=== PATIENT | female | born 1995 | race Caucasian/White ===

== ENCOUNTER 2019-02-17 10:23 | Inpatient (IN) | payer OTHER ==
[2019-02-17 10:28] VITALS: BMI 25.6
[2019-02-17] MEDS ORDERED: ACETAMINOPHEN 500 MG TABLET (FP) PO ONE (10:32)
--- NOTE | 2019-02-17 10:32 | PDOC ---
History of Present Illness - General Chief Complaint: Pain, Acute Stated Complaint: ABD PAIN Time Seen by Provider: 02/17/19 10:24 - History of Present Illness Initial Comments: 02/17/19 11:05 23 year old with no pmhx presents with 2 day of nausea, vomiting, RLQ cramping 8 /10 constant abdominal pain that onset 2 hours after eating pizza last night. The patient reports she awoke from sleep with pain and nausea occurring throughout the night without relief. The patient denies taking anything for pain. She reports that she is sexually active, LNMP 02/10/19. She reports feeling warm but did not check her temperature. She has no other complaints. ROS GENERAL/CONSTITUTIONAL: No fever or chills. No weakness. CARDIOVASCULAR: No chest pain or shortness of breath RESPIRATORY: No cough, wheezing, or hemoptysis. GASTROINTESTINAL: + nausea, vomiting, No diarrhea or constipation. GENITOURINARY: No dysuria, frequency, or change in urination. MUSCULOSKELETAL: No joint or muscle swelling or pain. No neck or back pain. SKIN: No rash PE GENERAL: Awake, alert, and fully oriented, in no acute distress HEAD: No signs of trauma, normocephalic, atraumatic EYES: EOMI, sclera anicteric, conjunctiva clear ENT: oropharynx clear without exudates. Moist mucosa NECK: Normal ROM, supple LUNGS: No distress, speaks full sentences, clear to auscultation bilaterally HEART: Regular rate and rhythm, normal S1 and S2, no murmurs, rubs or gallops, peripheral pulses normal and equal bilaterally. ABDOMEN: Soft, + RLQ tenderness, + Rovsing sign, + psoas sign, No guarding, no rebound. No masses EXTREMITIES : Normal inspection, Normal range of motion, no edema. No clubbing or cyanosis. NEUROLOGICAL: Cranial nerves II through XII grossly intact. Normal speech, no focal sensorimotor deficits SKIN: Warm, Dry, normal turgor, no rashes or lesions noted PELVIC: closed cervical os, no adenxal massess, no cervical motion tenderness MDM DDX including but not limited to: appendicitis consider ovarian torsions however presentation of pain inconsistent. r/o ectopic W/U: - pre-op labs, CT [place]: - zofran ,tylenol ED Course: leukocytosis to 16 ua, preg negative CT: enterocolitis vs appendicitis Page sent to surgery Dr. Cotton 02/17/19 13:[address] Cotton who recommends admission recommends repeat CTAP with oral contract dose zosyn and plan for admission patient to start drinking contrast and have scan after 1.5 hrs Goldie Boss, PGY2 Emergency Medicine Past History - Past Medical History Allergies/Adverse Reactions: Allergies Allergy/AdvReac Type Severity Reaction Status Date / Time No Known Allergies Allergy Verified 02/17/19 10:24 Home Medications: Ambulatory Orders NK [No Known Home Medication] 02/17/19 COPD: No - Reproductive History Is Patient Now?: No - Psycho Social/Smoking Cessation Hx Smoking History: Current some day smoker Have you smoked in the past 12 months: Yes Information on smoking cessation initiated: Yes Hx Alcohol Use: ("social") *Physical Exam - Vital Signs Last Vital Signs Temp Pulse Resp BP Pulse Ox 98.4 F 79 18 129/92 100 02/17/19 10:23 02/17/19 10:23 02/17/19 10:23 02/17/19 10:23 02/17/19 10:23 ED Treatment Course - LABORATORY CBC & Chemistry Diagram: 02/17/19 10:40 02/17/19 10:40 Discharge - Discharge Information Problems reviewed: Yes Clinical Impression/Diagnosis: Enterocolitis, Appendicitis Condition: Stable - Admission Yes - Follow up/Referral - Patient Discharge Instructions - Post Discharge Activity
[2019-02-17] MEDS ORDERED: ACETAMINOPHEN 1000 MG/100 ML VIAL (NON FORMULARY) IVPB ONE (10:38)
[2019-02-17] MEDS ORDERED: ONDANSETRON 4 MG/2 ML VIAL IVPUSH ONE (10:38)
[2019-02-17] MEDS ORDERED: ONDANSETRON 4 MG/2 ML VIAL ONE ×2 (10:48→11:33)
[2019-02-17] MEDS ORDERED: ACETAMINOPHEN INJECTION 100 ML IVPB ONE (10:48)
--- NOTE | 2019-02-17 10:53 | PDOC ---
Attending Attestation - Resident Resident Name: Fabiano Bossie - ED Attending Attestation I have performed the following: I have examined & evaluated the patient, The case was reviewed & discussed with the resident, I agree w/resident's findings & plan, Exceptions are as noted - HPI HPI: 02/17/19 10:47 23 F with no PMH presents to ED with RLQ pain x 2 days. Pt states pain started last night and has been constant, progressively worsening. Endorses nausea with vomiting and subjective fevers. Denies diarrhea/constipation. Not currently sexually active. Denies vaginal discharge/bleeding. No h/o STIs. Pt states that she had an episode of "mild appendicitis" several years ago that was managed with antibiotics. Denies any prior surgeries. - Physicial Exam PE: 02/17/19 10:48 GENERAL: Awake, alert, and fully oriented, in no acute distress. HEAD: No signs of trauma EYES: PERRLA, EOMI, sclera anicteric, conjunctiva clear ENT: Auricles normal inspection, hearing grossly normal, nares patent, oropharynx clear without exudates. Moist mucosa NECK: Nontender, no stepoffs, Normal ROM, supple, no lymphadenopathy, JVD, or masses LUNGS: Breath sounds equal, clear to auscultation bilaterally. No wheezes, and no crackles HEART: Regular rate and rhythm, normal S1 and S2, no murmurs, rubs or gallops ABDOMEN: + RLQ TTP, + rebound EXTREMITIES: Normal range of motion, no edema. No clubbing or cyanosis. No cords, erythema, or tenderness NEUROLOGICAL: Cranial nerves II through XII intact. 5/5 strength and sensation in all extremities, Normal speech, normal gait, normal cerebellar function SKIN: Warm, Dry, normal turgor, no rashes or lesions noted. - Medical Decision Making 02/17/19 10:49 23 F with RLQ pain. Suspect appendicitis. Pt's pain is not colicky, but consider ovarian torsion if appy work up is negative. - Labs, UA, UPT - CTAP - ?TVUS - IVF, tylenol 02/17/19 13:35 CT shows enterocolitis vs appendicitis Discussed with Dr. Cotton, surgeon material control specialist, who reviewed CT images and believes it is more likely Crohn's than appendicitis, but he will evaluate pt. Abx ordered. 02/17/19 13:49 Pt admitted to hospitalist. Dr. Cotton requesting repeat CT with PO contrast.
[2019-02-17 11:03] LABS: HEMATOCRIT 38.4 % (32.4-45.2); MCH 30.1 pg (25.7-33.7); MCHC 33.8 g/dl (32.0-36.0); MEAN CELL VOLUME 88.9 fl (80-96); MEAN PLT VOLUME 8.7 fl (7.5-11.1); PLATELET COUNT 257 K/MM3 (134-434); RBC 4.32 M/mm3 (3.60-5.2); WHITE BLOOD COUNT 16.2 K/mm3 (4.0-10.8)
[2019-02-17 11:08] LABS: INR 1.07 (0.82-1.09)
[2019-02-17 11:10] LABS: ALBUMIN 4.6 g/dl (3.4-5.0); BILIRUBIN,TOTAL 1.1 mg/dl (0.2-1); CALCIUM 9.7 mg/dl (8.5-10); CREATININE 0.8 mg/dl (0.55-1.3); POTASSIUM 3.8 mmol/L (3.5-5.1); TOT PROT 7.6 g/dl (6.4-8.2)
[2019-02-17] MEDS ORDERED: morphine CARPU-JECT 4 MG/1 ML DISP.SYRIN IVPUSH ONE (11:23)
[2019-02-17] MEDS ORDERED: ONDANSETRON 4 MG/2 ML VIAL IVPB ONE (11:23)
[2019-02-17 11:24] LABS: PLATELET ESTIMATE ADEQUATE
[2019-02-17] MEDS ORDERED: morphine SULFATE 4 MG/ML VIAL ONE (11:34)
[2019-02-17] MEDS ORDERED: METOCLOPRAMIDE HCL INJECTION 10 MG/2 ML VIAL IVPUSH ONE (11:34)
[2019-02-17] MEDS ORDERED: SODIUM CHLORIDE 1,000 ML IV STA (11:50)
[2019-02-17] MEDS ORDERED: PIPERACILLIN/TAZOB 4.5 GM 4.5 GM/100 ML BAG IVPB ONE (13:30)
[2019-02-17] MEDS ORDERED: PIPERACILLIN/TAZOBACTAM 4.5 GM VIAL IVPB ONE (13:35)
--- NOTE | 2019-02-17 14:44 | HP ---
CHIEF COMPLAINT: RLQ pain. PCP: Dr. Cheikh Jacob, [place] HISTORY OF PRESENT ILLNESS: 23 year-old female with a PMH significant for ovarian cysts, presented to the ED today for evaluation of RLQ pain and vomiting. Patient developed RLQ pain at around midnight. She was able to fall asleep but at 1:00am the pain awakened her and she began vomiting. Through the night the pain progressed and she vomited 10-12 times, bilious, non-bloody fluid. Initial CT with IV contrast was done in the ED and showed possible enterocolitis v. possible appendicitis. Repeat CTAP with PO contrast was done and there is no CT evidence of acute appendicitis, and the thickened loops of bowel seen on the first study are now filled with contrast and do not appear to be significantly thickened. Patient and her mother (present) now state patient was hospitalized in October 2017 in [place] for very similar symptoms: lower abdominal pain which was thought to be appendicitis but which turned out to be ovarian cysts. Patient has been on LoEstrin OCP for the past year. She stopped taking OCP about a month ago. Her LMP was 02/06 which was her second period in January which is very unusual for her. Patient denies fever, sweats, chills. Denies dysuria, frequency, urgency. Denies diarrhea. 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 Smoking: no; vaping no Alcohol: casual Drugs: marijuana Allergies No Known Allergies Allergy (Verified 02/17/19 10:24) HOME MEDICATIONS: Home Medications Medication Instructions Recorded NK [No Known Home Medication] 02/17/19 REVIEW OF SYSTEMS CONSTITUTIONAL: Absent: fever, chills, diaphoresis, generalized weakness, malaise, loss of appetite, weight change HEENT: Absent: rhinorrhea, nasal congestion, throat pain, throat swelling, difficulty swallowing, mouth swelling, ear pain, eye pain, visual changes CARDIOVASCULAR: Absent: chest pain, syncope, palpitations, irregular heart rate, lightheadedness , peripheral edema RESPIRATORY: Absent: cough, shortness of breath, dyspnea with exertion, orthopnea, wheezing, stridor, hemoptysis GASTROINTESTINAL: +abdominal pain, nausea, vomiting Absent: abdominal pain, abdominal distension, nausea, vomiting, diarrhea, constipation, melena, hematochezia GENITOURINARY: Absent: dysuria, frequency, urgency, hesitancy, hematuria, flank pain, genital pain MUSCULOSKELETAL: Absent: myalgia, arthralgia, joint swelling, back pain, neck pain SKIN: Absent: rash, itching, pallor HEMATOLOGIC/IMMUNOLOGIC: Absent: easy bleeding, easy bruising, lymphadenopathy, frequent infections ENDOCRINE: Absent: unexplained weight gain, unexplained weight loss, heat intolerance, cold intolerance NEUROLOGIC: Absent: headache, focal weakness or paresthesias, dizziness, unsteady gait, seizure, mental status changes, bladder or bowel incontinence PSYCHIATRIC: Absent: anxiety, depression, suicidal or homicidal ideation, hallucinations. PHYSICAL EXAMINATION Vital Signs - 24 hr 02/17/19 02/17/19 10:23 14:09 Temperature 98.4 F 98.2 F Pulse Rate 79 Pulse Rate [ 71 Left Apical] Respiratory 18 16 Rate Blood Pressure 129/92 Blood Pressure 117/68 [Left Arm] O2 Sat by Pulse 100 99 Oximetry (%) GENERAL: Awake, alert, and fully oriented, in no acute distress. LUNGS: Breath sounds equal, clear to auscultation bilaterally. No wheezes, and no crackles. No accessory muscle use. HEART: Regular rate and rhythm, normal S1 and S2 ABDOMEN: Tenderness both LLQ and RLQ, hypoactive bowel sounds UPPER EXTREMITIES: 2+ pulses, warm, well-perfused. No cyanosis. No clubbing. No peripheral edema. LOWER EXTREMITIES: 2+ pulses, warm, well-perfused. No calf tenderness. No peripheral edema. NEUROLOGICAL: Cranial nerves II-XII intact. Normal speech. Laboratory Results - last 24 hr 02/17/19 02/17/19 02/17/19 10:40 10:40 10:40 WBC 16.2 H RBC 4.32 Hgb 13.0 Hct 38.4 MCV 88.9 MCH 30.1 MCHC 33.8 RDW 13.0 Plt Count 257 MPV 8.7 Absolute Neuts (auto) 13.8 Neutrophils % No Result Required. Neutrophils % (Manual) 81.0 Band Neutrophils % 6.0 Lymphocytes % No Result Required. Lymphocytes % (Manual) 4.0 L Monocytes % (Manual) 9 Platelet Estimate Adequate PT with INR 12.0 INR 1.07 PTT (Actin FS) Sodium 140 Potassium 3.8 Chloride 104 Carbon Dioxide 22 Anion Gap 14 BUN 17.0 Creatinine 0.8 Est GFR (CKD-EPI)AfAm 120.44 Est GFR (CKD-EPI)NonAf 103.92 Random Glucose 137 H Calcium 9.7 Total Bilirubin 1.1 H AST 27 ALT 37 Alkaline Phosphatase 75 Total Protein 7.6 Albumin 4.6 Urine Color Urine Appearance Urine pH Urine Protein Urine Glucose (UA) Urine Ketones Urine Blood Urine Nitrite Urine Bilirubin Urine Urobilinogen Ur Leukocyte Esterase Urine HCG, Qual Blood Type Antibody Screen 02/17/19 02/17/19 02/17/19 10:40 10:40 10:41 WBC RBC Hgb Hct MCV MCH MCHC RDW Plt Count MPV Absolute Neuts (auto) Neutrophils % Neutrophils % (Manual) Band Neutrophils % Lymphocytes % Lymphocytes % (Manual) Monocytes % (Manual) Platelet Estimate PT with INR INR PTT (Actin FS) 32.9 Sodium Potassium Chloride Carbon Dioxide Anion Gap BUN Creatinine Est GFR (CKD-EPI)AfAm Est GFR (CKD-EPI)NonAf Random Glucose Calcium Total Bilirubin AST ALT Alkaline Phosphatase Total Protein Albumin Urine Color Urine Appearance Urine pH Urine Protein Urine Glucose (UA) Urine Ketones Urine Blood Urine Nitrite Urine Bilirubin Urine Urobilinogen Ur Leukocyte Esterase Urine HCG, Qual Negative Blood Type O POSITIVE Antibody Screen 02/17/19 02/17/19 10:41 10:42 WBC RBC Hgb Hct MCV MCH MCHC RDW Plt Count MPV Absolute Neuts (auto) Neutrophils % Neutrophils % (Manual) Band Neutrophils % Lymphocytes % Lymphocytes % (Manual) Monocytes % (Manual) Platelet Estimate PT with INR INR PTT (Actin FS) Sodium Potassium Chloride Carbon Dioxide Anion Gap BUN Creatinine Est GFR (CKD-EPI)AfAm Est GFR (CKD-EPI)NonAf Random Glucose Calcium Total Bilirubin AST ALT Alkaline Phosphatase Total Protein Albumin Urine Color Yellow Urine Appearance Clear Urine pH 7.0 Urine Protein Trace Urine Glucose (UA) Negative Urine Ketones Negative Urine Blood Negative Urine Nitrite Negative Urine Bilirubin Negative Urine Urobilinogen 0.2 Ur Leukocyte Esterase Negative Urine HCG, Qual Blood Type O POSITIVE Antibody Screen Negative ASSESSMENT/PLAN: 23 year-old female with a PMH significant for ovarian cysts, admitted for lower abdominal pain and leukocytosis. Lower abdominal pain Leukocytosis --has RLQ and LLQ tenderness on exam, WBC 16.2k, afebrile --CTAP w/PO contrast shows no CT evidence of appendicitis or enterocolitis; HCG negative --very similar presentation in October 2017 in hospital in [place], had a negative workup for appendicitis and turned out to be ovarian cysts; patient has been on OCP for past year, stopped in early December and has two irregular periods in January --empiric ceftriaxone and metronidazole --will get transvaginal US --message left for surgeon Dr. Yury LOREDO Fluids: NS @ 125mL/hr Electrolytes: replete as indicated Nutrition: NPO DVT prophylasix: oob, ambulation, SCDs Dispo: continues to require inpatient care. Full code., Visit type - Emergency Visit Emergency Visit: Yes ED Registration Date: 02/17/19 Care time: The patient presented to the Emergency Department on the above date and was hospitalized for further evaluation of their emergent condition. - New Patient This patient is new to me today: Yes Date on this admission: 02/17/19 - Critical Care Critical Care patient: No
[2019-02-17] MEDS ORDERED: SODIUM CHLORIDE 1,000 ML IV SCH (15:15)
[2019-02-17] MEDS: CEFTRIAXONE 2 GM-D5W BAG 2 GM/50 ML BAG IVPB SCH (15:19)
[2019-02-17] MEDS: ACETAMINOPHEN 1000 MG/100 ML VIAL (NON FORMULARY) IVPB PRN (17:35)
--- NOTE | 2019-02-17 19:18 | CONSULT ---
Consult Consult Specialty:: Surgery Reason for Consultation:: abdominal pain - History of Present Illness Chief Complaint: right lower quadrant abdominal pain History of Present Illness: 23 year old with no pmhx presents with 2 day of nausea, vomiting, RLQ cramping 8 /10 constant abdominal pain that onset 2 hours after eating pizza last night. The patient reports she awoke from sleep with pain and nausea occurring throughout the night without relief. The patient denies taking anything for pain. She reports that she is sexually active, LNMP 02/10/19. She reports feeling warm but did not check her temperature. She has no other complaints. - History Source History Provided By: Patient Limitations to Obtaining History: No Limitations - Past Medical History ...LMP: 02/03/19 ...: No - Alcohol/Substance Use Hx Alcohol Use: ("social") - Smoking History Smoking history: Current some day smoker Have you smoked in the past 12 months: Yes Home Medications - Allergies Allergies/Adverse Reactions: Allergies Allergy/AdvReac Type Severity Reaction Status Date / Time No Known Allergies Allergy Verified 02/17/19 10:24 - Home Medications Home Medications: Ambulatory Orders NK [No Known Home Medication] 02/17/19 Review of Systems - Review of Systems Constitutional: reports: Loss of Appetite Eyes: reports: No Symptoms HENT: reports: No Symptoms Neck: reports: No Symptoms Cardiovascular: reports: No Symptoms Respiratory: reports: No Symptoms Gastrointestinal: reports: Abdominal Pain (right lower quadrant), Nausea Physical Exam Vital Signs: Vital Signs Temperature 98.2 F 02/17/19 14:09 Pulse Rate 71 02/17/19 14:09 Respiratory Rate 16 02/17/19 14:09 Blood Pressure 117/68 02/17/19 14:09 O2 Sat by Pulse Oximetry (%) 99 02/17/19 14:09 Constitutional: Yes: Well Nourished Eyes: Yes: Conjunctiva Clear HENT: Yes: Normocephalic, Tonsillar Exudate Cardiovascular: Yes: Regular Rate and Rhythm Respiratory: Yes: CTA Bilaterally Gastrointestinal: Yes: Soft, Tenderness (at RLQ, suprApubic, and RUQ, no rebound tenderness) ...Rectal Exam: Yes: Deferred Labs: CBC, BMP 02/17/19 10:40 02/17/19 10:40 Imaging - Results Cat Scan: Report Reviewed, Image Reviewed (no evidence of acute appendicitis) Problem List - Problems (1) Appendicitis Assessment/Plan: with no radiologic findings suspicious for acute appendicitis, patient can be observed with serial abdominal exams agree with empiric antibiotics possible appendectomy only if there is no clinical improvement within 24 hours Code(s): K37 - UNSPECIFIED APPENDICITIS
[2019-02-18] MEDS ORDERED: PT OWN MED DRAWER 7, Y5N ONE ×2 (03:22→09:33)
[2019-02-18] MEDS: ACETAMINOPHEN 1000 MG/100 ML VIAL (NON FORMULARY) IVPB PRN (06:14)
[2019-02-18 06:16] VITALS: BP 114/68; PULSE 66; TEMP 97.9
[2019-02-18] MEDS: CEFTRIAXONE 2 GM-D5W BAG 2 GM/50 ML BAG IVPB SCH (10:04)
[2019-02-18 10:20] LABS: BASO % 0.6 % (0-2.0); EOS % 0.9 % (0-4.5); HEMATOCRIT 32.8 % (32.4-45.2); HEMOGLOBIN 10.9 GM/dl (10.7-15.3); LYMPH % 32.9 % (8-40); MCH 29.9 pg (25.7-33.7); MCHC 33.2 g/dl (32.0-36.0); MEAN PLT VOLUME 8.2 fl (7.5-11.1); NEUT % 58.6 % (42.8-82.8); PLATELET COUNT 198 K/MM3 (134-434); RBC 3.64 M/mm3 (3.60-5.2); RDW 13.2 % (11.6-15.6); WHITE BLOOD COUNT 6.1 K/mm3 (4.0-10.8)
--- NOTE | 2019-02-18 10:33 | DS ---
Physical Exam: SUBJECTIVE: Patient seen and examined OBJECTIVE: Vital Signs Period Temp Pulse Resp BP Sys/Barrera Pulse Ox Last 24 Hr 97.9 F-98.9 F 60-71 16-18 101-117/58-69 99-100 PHYSICAL EXAM GENERAL: The patient is awake, alert, and fully oriented, in no acute distress. HEAD: Normal with no signs of trauma. EYES: PERRL, extraocular movements intact, sclera anicteric, conjunctiva clear. ENT: Ears normal, nares patent, oropharynx clear without exudates, moist mucous membranes. NECK: Trachea midline, full range of motion, supple. LUNGS: Breath sounds equal, clear to auscultation bilaterally, no wheezes, no crackles, no accessory muscle use. HEART: Regular rate and rhythm, S1, S2 without murmur, rub or gallop. ABDOMEN: Soft, nontender, nondistended, normoactive bowel sounds, no guarding, no rebound, no hepatosplenomegaly, no masses. EXTREMITIES: 2+ pulses, warm, well-perfused, no edema. NEUROLOGICAL: Cranial nerves II through XII grossly intact. Normal speech, gait not observed. PSYCH: Normal mood, normal affect. SKIN: Warm, dry, normal turgor, no rashes or lesions noted. LABS Laboratory Results - last 24 hr 02/17/19 02/17/19 02/17/19 10:40 10:40 10:40 WBC 16.2 H RBC 4.32 Hgb 13.0 Hct 38.4 MCV 88.9 MCH 30.1 MCHC 33.8 RDW 13.0 Plt Count 257 MPV 8.7 Absolute Neuts (auto) 13.8 Neutrophils % No Result Required. Neutrophils % (Manual) 81.0 Band Neutrophils % 6.0 Lymphocytes % No Result Required. Lymphocytes % (Manual) 4.0 L Monocytes % Monocytes % (Manual) 9 Eosinophils % Basophils % Platelet Estimate Adequate PT with INR 12.0 INR 1.07 PTT (Actin FS) Sodium 140 Potassium 3.8 Chloride 104 Carbon Dioxide 22 Anion Gap 14 BUN 17.0 Creatinine 0.8 Est GFR (CKD-EPI)AfAm 120.44 Est GFR (CKD-EPI)NonAf 103.92 Random Glucose 137 H Calcium 9.7 Total Bilirubin 1.1 H AST 27 ALT 37 Alkaline Phosphatase 75 Total Protein 7.6 Albumin 4.6 Urine Color Urine Appearance Urine pH Urine Protein Urine Glucose (UA) Urine Ketones Urine Blood Urine Nitrite Urine Bilirubin Urine Urobilinogen Ur Leukocyte Esterase Urine HCG, Qual Blood Type Antibody Screen 02/17/19 02/17/19 02/17/19 10:40 10:40 10:41 WBC RBC Hgb Hct MCV MCH MCHC RDW Plt Count MPV Absolute Neuts (auto) Neutrophils % Neutrophils % (Manual) Band Neutrophils % Lymphocytes % Lymphocytes % (Manual) Monocytes % Monocytes % (Manual) Eosinophils % Basophils % Platelet Estimate PT with INR INR PTT (Actin FS) 32.9 Sodium Potassium Chloride Carbon Dioxide Anion Gap BUN Creatinine Est GFR (CKD-EPI)AfAm Est GFR (CKD-EPI)NonAf Random Glucose Calcium Total Bilirubin AST ALT Alkaline Phosphatase Total Protein Albumin Urine Color Urine Appearance Urine pH Urine Protein Urine Glucose (UA) Urine Ketones Urine Blood Urine Nitrite Urine Bilirubin Urine Urobilinogen Ur Leukocyte Esterase Urine HCG, Qual Negative Blood Type O POSITIVE Antibody Screen 02/17/19 02/17/19 02/18/19 10:41 10:42 10:20 WBC 6.1 RBC 3.64 Hgb 10.9 Hct 32.8 MCV 90.0 MCH 29.9 MCHC 33.2 RDW 13.2 Plt Count 198 MPV 8.2 Absolute Neuts (auto) 3.6 Neutrophils % 58.6 Neutrophils % (Manual) Band Neutrophils % Lymphocytes % 32.9 Lymphocytes % (Manual) Monocytes % 7.0 Monocytes % (Manual) Eosinophils % 0.9 Basophils % 0.6 Platelet Estimate PT with INR INR PTT (Actin FS) Sodium Potassium Chloride Carbon Dioxide Anion Gap BUN Creatinine Est GFR (CKD-EPI)AfAm Est GFR (CKD-EPI)NonAf Random Glucose Calcium Total Bilirubin AST ALT Alkaline Phosphatase Total Protein Albumin Urine Color Yellow Urine Appearance Clear Urine pH 7.0 Urine Protein Trace Urine Glucose (UA) Negative Urine Ketones Negative Urine Blood Negative Urine Nitrite Negative Urine Bilirubin Negative Urine Urobilinogen 0.2 Ur Leukocyte Esterase Negative Urine HCG, Qual Blood Type O POSITIVE Antibody Screen Negative HOSPITAL COURSE: Date of Admission:02/17/19 Date of Discharge: 02/18/19 Pre hospital course 23 year-old female with a PMH significant for ovarian cysts, presented to the ED today for evaluation of RLQ pain and vomiting. Patient developed RLQ pain at around midnight. She was able to fall asleep but at 1:00am the pain awakened her and she began vomiting. Through the night the pain progressed and she vomited 10-12 times, bilious, non-bloody fluid. Initial CT with IV contrast showed possible enterocolitis v. possible appendicitis. Repeat CTAP with PO contrast was done and there is no CT evidence of acute appendicitis, and the thickened loops of bowel seen on the first study are now filled with contrast and do not appear to be significantly thickened. Patient was hospitalized in October 2017 in [place] for very similar symptoms: lower abdominal pain which was thought to be appendicitis but which turned out to be ovarian cysts. Patient has been on LoEstrin OCP for the past year. She stopped taking OCP about a month ago. Her LMP was 02/06 which was her second period in January which is very unusual for her. Patient denies fever, sweats, chills. Denies dysuria, frequency, urgency. Denies diarrhea. ER course (1) HCG negative (2) WBC 16.2k Subsequent hospital course 23 year-old female with a PMH significant for ovarian cysts, admitted for lower abdominal pain and leukocytosis. Lower abdominal pain Leukocytosis --CTAP w/PO contrast showed no CT evidence of appendicitis or enterocolitis; HCG negative --US transvaginal: large amount of free pelvic fluid within the cul-de-sac --very similar presentation in October 2017 in hospital in [place], had a negative workup for appendicitis and turned out to be ovarian cysts --patient will follow up with technical expert back home in [place] Minutes to complete discharge: 35 Discharge Summary Problems reviewed: Yes Reason For Visit: APPENDICITIS Current Active Problems Appendicitis (Acute) Enterocolitis (Acute) Condition: Improved - Instructions Diet, Activity, Other Instructions: As discussed you should follow up with your technical expert when you get back home to [place]. Return to your closest emergency department for any new or worsening symptoms. Disposition: HOME - Home Medications Comprehensive Discharge Medication List: Ambulatory Orders NK [No Known Home Medication] 02/17/19 This patient is new to me today: No Emergency Visit: Yes ED Registration Date: 02/17/19 Care time: The patient presented to the Emergency Department on the above date and was hospitalized for further evaluation of their emergent condition. Critical Care patient: No - Discharge Referral Referred to [facility] No
[2019-02-18 10:54] LABS: CREATININE 0.9 mg/dl (0.55-1.3); POTASSIUM 3.7 mmol/L (3.5-5.1)
[2019-02-18 10:55] LABS: ALBUMIN 3.3 g/dl (3.4-5.0); BILIRUBIN,TOTAL 0.3 mg/dl (0.2-1); CALCIUM 8.1 mg/dl (8.5-10); MAGNESIUM 1.8 mg/dL (1.8-2.4); TOT PROT 5.8 g/dl (6.4-8.2)
== END 2019-02-18 12:17 | disposition home or self-care (01) | DRG 532 ==
LOC: FER 10:23 → FM/S 13:42
PROVIDERS: ADMIT Internal Medicine; ATTEND Nurse Practitioner Acute Care
DX: N83.209 Unspecified ovarian cyst, unspecified side (principal); K52.9 Noninfective gastroenteritis and colitis, unspecified; R11.2 Nausea with vomiting, unspecified; K37 Unspecified appendicitis; D72.829 Elevated white blood cell count, unspecified; R10.31 Right lower quadrant pain
CPT/HCPCS: 36415; 74176-TC; 74177-TC; 76830-TC; 80053; 81003; 83735; 84703; 85025; 85610; 85730; 86850; 86900; 86901; 87086; 99284-25; J0131; J7030